=== PATIENT | male | born 1960 | race Caucasian/White ===

== ENCOUNTER 2021-12-26 10:23 | Emergency (ER) | payer OTHER ==
[~2021-12-26] VITALS: Ht 182.9 cm; Wt 81.5 kg
[2021-12-26] MEDS ORDERED: KETOROLAC TROMETH 60MG/2ML VIAL IV ONE (11:15)
[2021-12-26] MEDS ORDERED: diazePAM 5 MG TAB PO ONE (11:15)
[2021-12-26 14:41] LABS: Basophils # (auto) 0 10 ^3/uL (0-0.2); Basophils % (auto) 0.4 % (0.0-2.0); Eosinophils # (auto) 0 10 ^3/uL (0-0.8); Eosinophils % (auto) 0.2 % (0.0-7.0); Hematocrit 47.1 % (41.0-53.0); Hemoglobin 15.8 g/dL (13.5-17.5); Lymphocytes # (auto) 0.9 10 ^3/uL (0.4-5.4); Lymphocytes % (auto) 9.8 % (10.0-50.0); Mean Corpuscular Hgb Conc. 33.4 g/dL (32.0-36.0); Mean Corpuscular Volume 80.8 fL (80.0-100.0); Monocytes # (auto) 0.4 10 ^3/uL (0-1.3); Monocytes % (auto) 4.6 % (0.0-12.0); Neutrophils # (auto) 7.7 10 ^3/uL (1.6-8.6); Nucleated Red Blood Cells % 0.1 %; Red Blood Cells 5.83 10^6/uL (4.5-5.90); Red Cell Distribution Width 14.5 % (11.8-14.3); White Blood Cell 9.1 10^3/uL (4.4-10.8)
[2021-12-26 14:57] LABS: Partial Thromboplastin Time 26.5 sec (24.6-33.4)
[2021-12-26 15:03] LABS: Albumin 3.6 g/dL (3.4-5.0); Calcium 8.3 mg/dL (8.5-10.1); Potassium 4.4 mmol/L (3.5-5.1)
[2021-12-26 15:07] LABS: BUN/Creatinine Ratio 19.7; Bilirubin, Total 0.8 mg/dL (0.2-1.0); Total Protein 6.2 g/dL (6.4-8.2)
[2021-12-26] MEDS ORDERED: MORPHINE SULFATE 4 MG/ML SYR/VIAL IV STA (17:17)
[2021-12-26 20:54] VITALS: BP 184/93
== END 2021-12-26 21:35 | disposition short-term general hospital (02) ==
LOC: EDBD 10:23 → ER 10:23
DX: S22.41XA Multiple fractures of ribs, right side, initial encounter for closed fracture (principal); E11.9 Type 2 diabetes mellitus without complications; Z87.891 Personal history of nicotine dependence; Z20.822 Contact with and (suspected) exposure to COVID-19; W51.XXXA Accidental striking against or bumped into by another person, initial encounter; Y93.89 Activity, other specified; Y92.89 Other specified places as the place of occurrence of the external cause; Y99.8 Other external cause status
CPT/HCPCS: 36415; 71250; 80053; 85025; 85610; 85730; 87426; 96374; 96375; 99285; J1885; J2270

== ENCOUNTER 2022-02-09 02:33 | Inpatient (IN) | payer OTHER ==
[~2022-02-09] VITALS: Ht 180.3 cm; Wt 96.5 kg
[2022-02-09 03:18] LABS: Basophils # (auto) 0.1 10 ^3/uL (0-0.2); Basophils % (auto) 1.2 % (0.0-2.0); Eosinophils # (auto) 0.1 10 ^3/uL (0-0.8); Eosinophils % (auto) 1.6 % (0.0-7.0); Hematocrit 47.7 % (41.0-53.0); Hemoglobin 16.2 g/dL (13.5-17.5); Lymphocytes # (auto) 2.2 10 ^3/uL (0.4-5.4); Lymphocytes % (auto) 35.8 % (10.0-50.0); Mean Corpuscular Hemoglobin 27.7 pg (28.0-32.0); Mean Corpuscular Volume 81.6 fL (80.0-100.0); Monocytes # (auto) 0.4 10 ^3/uL (0-1.3); Monocytes % (auto) 6.7 % (0.0-12.0); Neutrophils # (auto) 3.4 10 ^3/uL (1.6-8.6); Neutrophils % (auto) 54.7 % (37.0-80.0); Nucleated Red Blood Cells % 0.2 %; Red Blood Cells 5.85 10^6/uL (4.5-5.90); Red Cell Distribution Width 14.9 % (11.8-14.3); White Blood Cell 6.2 10^3/uL (4.4-10.8)
[2022-02-09 03:25] LABS: Albumin 3.8 g/dL (3.4-5.0); Calcium 8.9 mg/dL (8.5-10.1); Magnesium 2.2 mg/dL (1.6-2.6); Potassium 3.8 mmol/L (3.5-5.1)
[2022-02-09 03:29] LABS: BUN/Creatinine Ratio 17.8; Bilirubin, Total 0.9 mg/dL (0.2-1.0); Total Protein 6.8 g/dL (6.4-8.2)
[2022-02-09] MEDS ORDERED: ASPirin-EC 325mg tab PO ONE (04:00)
[2022-02-09] MEDS ORDERED: ENOXAPARIN SOD 100 MG/1 ML SYRINGE SC ONE (04:00)
[2022-02-09] MEDS: METOPROLOL TARTRATE 1MG/1ML-5ML VIAL IV SCH ×3 (04:01→07:45)
[2022-02-09] MEDS ORDERED: NITROGLYCERIN 0.4 MG SL TAB SL PRN ×2 (15:00→15:15)
[2022-02-09] MEDS ORDERED: MORPHINE SULFATE INJ 2 MG/ml SYRG IV ONE (15:00)
[2022-02-09] MEDS ORDERED: ONDANSETRON HCL 4 MG/2 ML VIAL IV ONE (15:00)
[2022-02-09] MEDS ORDERED: POTASSIUM CHL 20 Meq TABLET PO ONE (15:00)
[2022-02-09] MEDS ORDERED: MORPHINE SULFATE INJ 2 MG/ml SYRG IV PRN ×3 (15:00→15:15)
[2022-02-09] MEDS ORDERED: NITROGLYCERIN 0.4 MG SL TAB SL ONE (15:00)
[2022-02-09] MEDS ORDERED: METOPROLOL SUCCINATE XL 50 MG TAB PO ONE (15:00)
[2022-02-09] MEDS ORDERED: ACETAMINOPHEN 325 MG TAB PO PRN (15:15)
[2022-02-09] MEDS ORDERED: HYDROcodone-ACET 5/325MG TAB PO PRN (15:15)
[2022-02-09] MEDS ORDERED: hydrALAZINE HCL 20 MG/ML VL IV PRN (15:15)
[2022-02-09] MEDS ORDERED: DEXTROSE (50%) 50ML SYRG IV PRN (15:15)
[2022-02-09] MEDS ORDERED: LISI-275 PO (15:16)
[2022-02-09] MEDS ORDERED: GLIP5TAB12 PO (15:16)
[2022-02-09] MEDS ORDERED: AZITHROMYCIN 500MG/ 250ML 250 ML IV ONE (15:30)
[2022-02-09] MEDS ORDERED: cefTRIAXone 1GM/50ML D5W 50 ML IV ONE (15:30)
[2022-02-09] MEDS: SODIUM CHLORIDE 0.9% 1,000 ML IV SCH (15:31)
[2022-02-09 15:32] LABS: Urine Bacteria NONE SEEN /hpf (None Seen); Urine Blood Negative /uL (Negative); Urine Mucus FEW (None Seen); Urine Specific Gravity 1.022 (1.001-1.035); Urine WBC 5 /hpf (0 - 3)
[2022-02-09 16:34] LABS: INR 1.02 (0.9-1.15); Partial Thromboplastin Time 27.4 sec (24.6-33.4)
[2022-02-09 16:48] LABS: Alcohol, Urine < 3.0 mg/dL (0-10); Amphetamine Screen, Urine NEGATIVE (NEGATIVE); Barbiturate Scree,Urine NEGATIVE (NEGATIVE); Benzodiazephine Screen, Urine NEGATIVE (NEGATIVE); Cannabinoid Screen, Urine NEGATIVE (NEGATIVE); Cocaine Screen, Urine NEGATIVE (NEGATIVE); Opiate Scree,Urine NEGATIVE (NEGATIVE); Phencyclidine Screen, Urine NEGATIVE (NEGATIVE)
[2022-02-09] MEDS: InsuLIN REG 1unit/0.01ml Soln (100units/ml) SC SCH ×2 (17:21→22:00)
[2022-02-09] MEDS: ACCU-CHEK COMFORT CURVE STRIP VI SCH (17:21)
[2022-02-09 17:45] LABS: Cholesterol 191 mg/dL (< 200)
[2022-02-09 17:48] LABS: HDL Cholesterol 36 mg/dL (40-59); LDL Cholesterol 135 mg/dL (< 100); Triglycerides 218 mg/dL (< 150)
[2022-02-09] MEDS: hydrALAZINE HCL 20 MG/ML VL IV PRN (20:31)
[2022-02-09 22:00] VITALS: BP 185/86
[2022-02-09] MEDS ORDERED: ENOXAPARIN SOD 100 MG/1 ML SYRINGE SC SCH (22:00)
[2022-02-10] VITALS (9 sets, daily range): BP systolic 131–173; BP diastolic 72–94
[2022-02-10] MEDS: ATORVASTATIN 20 MG TAB PO SCH ×2 (00:53→21:15)
[2022-02-10] MEDS: ACCU-CHEK COMFORT CURVE STRIP VI SCH ×5 (00:53→21:27)
[2022-02-10] MEDS: AMIODARONE HCL 200 MG TAB PO SCH ×3 (01:01→21:15)
[2022-02-10 04:45] LABS: Basophils # (auto) 0.1 10 ^3/uL (0-0.2); Basophils % (auto) 0.9 % (0.0-2.0); Eosinophils # (auto) 0.1 10 ^3/uL (0-0.8); Hematocrit 45.8 % (41.0-53.0); Hemoglobin 15.8 g/dL (13.5-17.5); Lymphocytes # (auto) 2.2 10 ^3/uL (0.4-5.4); Lymphocytes % (auto) 31.6 % (10.0-50.0); Mean Corpuscular Hemoglobin 27.9 pg (28.0-32.0); Mean Corpuscular Hgb Conc. 34.4 g/dL (32.0-36.0); Mean Corpuscular Volume 81.1 fL (80.0-100.0); Monocytes # (auto) 0.5 10 ^3/uL (0-1.3); Monocytes % (auto) 7.9 % (0.0-12.0); Neutrophils % (auto) 58.6 % (37.0-80.0); Nucleated Red Blood Cells % 0.1 %; Red Blood Cells 5.65 10^6/uL (4.5-5.90); Red Cell Distribution Width 14.8 % (11.8-14.3); White Blood Cell 6.9 10^3/uL (4.4-10.8)
[2022-02-10 05:02] LABS: Potassium 4.1 mmol/L (3.5-5.1)
[2022-02-10 05:08] LABS: Albumin 3.4 g/dL (3.4-5.0); BUN/Creatinine Ratio 18.5; Bilirubin, Total 0.8 mg/dL (0.2-1.0); Calcium 8.8 mg/dL (8.5-10.1); Total Protein 6.1 g/dL (6.4-8.2)
[2022-02-10] MEDS: hydrALAZINE HCL 20 MG/ML VL IV PRN (05:10)
[2022-02-10] MEDS: SODIUM CHLORIDE 0.9% 1,000 ML IV SCH ×4 (05:10→23:00)
[2022-02-10] MEDS: InsuLIN REG 1unit/0.01ml Soln (100units/ml) SC SCH ×4 (05:39→21:49)
[2022-02-10] MEDS: cefTRIAXone 1GM/50ML D5W 50 ML IV SCH (08:45)
[2022-02-10] MEDS: ASPirin 81 mg TAB PO SCH (09:19)
[2022-02-10] MEDS: METOPROLOL SUCCINATE XL 50 MG TAB PO SCH (09:20)
[2022-02-10] MEDS ORDERED: ANGIOMAX 250 MG VIAL IV ONE (12:21)
[2022-02-10] MEDS ORDERED: VERAPAMIL 2.5MG/ML INJ 2ML VIAL IV ONE (12:21)
[2022-02-10] MEDS ORDERED: fentaNYL CITRATE 100 MCG/2 ML VL ONE (12:21)
[2022-02-10] MEDS ORDERED: MIDAZOLAM HCL 2MG/2ML 2ml VIAL (1mg/ml) ONE (12:21)
[2022-02-10] MEDS ORDERED: HEPARIN SODIUM (PORCINE) 5000 UNITS/ML 1ML VIAL ONE (12:21)
[2022-02-10] MEDS ORDERED: hydrALAZINE HCL 20 MG/ML VL ONE (12:33)
[2022-02-10] MEDS ORDERED: METOPROLOL TARTRATE 1MG/1ML-5ML VIAL IV ONE (12:49)
[2022-02-10] MEDS ORDERED: ASPirin 325 MG TAB ONE (13:22)
[2022-02-10] MEDS ORDERED: TICAGRELOR 90 MG TAB ONE (13:22)
[2022-02-10] MEDS: AZITHROMYCIN 500MG/ 250ML 250 ML IV SCH (16:01)
[2022-02-10] MEDS: TICAGRELOR 90 MG TAB PO SCH (21:15)
[2022-02-11] VITALS (7 sets, daily range): BP systolic 132–159; BP diastolic 73–89
[2022-02-11] MEDS: InsuLIN REG 1unit/0.01ml Soln (100units/ml) SC SCH ×4 (05:56→21:22)
[2022-02-11] MEDS: ACCU-CHEK COMFORT CURVE STRIP VI SCH ×4 (05:56→21:09)
[2022-02-11] MEDS: hydrALAZINE HCL 20 MG/ML VL IV PRN (06:32)
[2022-02-11 06:34] LABS: Basophils # (auto) 0 10 ^3/uL (0-0.2); Basophils % (auto) 0.4 % (0.0-2.0); Eosinophils # (auto) 0.1 10 ^3/uL (0-0.8); Eosinophils % (auto) 0.6 % (0.0-7.0); Hematocrit 44.1 % (41.0-53.0); Hemoglobin 15.4 g/dL (13.5-17.5); Lymphocytes # (auto) 1.7 10 ^3/uL (0.4-5.4); Lymphocytes % (auto) 20.1 % (10.0-50.0); Mean Corpuscular Hemoglobin 28.2 pg (28.0-32.0); Mean Corpuscular Hgb Conc. 34.9 g/dL (32.0-36.0); Mean Corpuscular Volume 80.8 fL (80.0-100.0); Monocytes # (auto) 0.6 10 ^3/uL (0-1.3); Monocytes % (auto) 7.6 % (0.0-12.0); Neutrophils % (auto) 71.3 % (37.0-80.0); Nucleated Red Blood Cells % 0.1 %; Red Blood Cells 5.46 10^6/uL (4.5-5.90); Red Cell Distribution Width 14.8 % (11.8-14.3); White Blood Cell 8.4 10^3/uL (4.4-10.8)
[2022-02-11 06:48] LABS: Potassium 3.7 mmol/L (3.5-5.1)
[2022-02-11 06:50] LABS: BUN/Creatinine Ratio 13.7
[2022-02-11] MEDS: cefTRIAXone 1GM/50ML D5W 50 ML IV SCH (08:49)
[2022-02-11] MEDS: ASPirin 81 mg TAB PO SCH (10:05)
[2022-02-11] MEDS: TICAGRELOR 90 MG TAB PO SCH ×2 (10:06→21:04)
[2022-02-11] MEDS: AMIODARONE HCL 200 MG TAB PO SCH ×2 (10:06→21:05)
[2022-02-11] MEDS: METOPROLOL SUCCINATE XL 50 MG TAB PO SCH (10:07)
[2022-02-11] MEDS: AZITHROMYCIN 500MG/ 250ML 250 ML IV SCH (10:10)
[2022-02-11] MEDS: APIXABAN 5 MG TAB PO SCH ×2 (11:27→21:04)
[2022-02-11] MEDS ORDERED: POTASSIUM CHL 20 Meq TABLET PO ONE (12:00)
[2022-02-11] MEDS ORDERED: FUROSEMIDE 20 MG/2 ML VIAL IV ONE (12:00)
[2022-02-11] MEDS: ATORVASTATIN 20 MG TAB PO SCH (21:04)
[2022-02-12] MEDS: hydrALAZINE HCL 20 MG/ML VL IV PRN (03:57)
[2022-02-12 05:00] VITALS: BP 164/86
[2022-02-12] MEDS: ACCU-CHEK COMFORT CURVE STRIP VI SCH ×3 (06:33→19:02)
[2022-02-12] MEDS: InsuLIN REG 1unit/0.01ml Soln (100units/ml) SC SCH ×3 (06:34→17:00)
[2022-02-12 06:51] LABS: Potassium 3.8 mmol/L (3.5-5.1)
[2022-02-12 06:58] LABS: BUN/Creatinine Ratio 17.6; Calcium 9.3 mg/dL (8.5-10.1)
[2022-02-12 08:00] VITALS: BP 152/74
[2022-02-12 09:21] VITALS: BP 150/74
[2022-02-12] MEDS: cefTRIAXone 1GM/50ML D5W 50 ML IV SCH (09:27)
[2022-02-12] MEDS: METOPROLOL SUCCINATE XL 50 MG TAB PO SCH (09:28)
[2022-02-12] MEDS: TICAGRELOR 90 MG TAB PO SCH (09:29)
[2022-02-12] MEDS: APIXABAN 5 MG TAB PO SCH (09:29)
[2022-02-12] MEDS: AMIODARONE HCL 200 MG TAB PO SCH (09:29)
[2022-02-12] MEDS: ASPirin 81 mg TAB PO SCH (09:29)
[2022-02-12] MEDS ORDERED: AZITHROMYCIN 250 MG TAB PO SCH (10:00)
[2022-02-12] MEDS ORDERED: TICA90TA PO (11:57)
[2022-02-12] MEDS ORDERED: ATOR20TA50 PO (11:57)
[2022-02-12] MEDS ORDERED: APIX5TAB PO (11:57)
[2022-02-12] MEDS ORDERED: ASPI-325 PO (11:57)
[2022-02-12] MEDS ORDERED: METO-6 PO (11:57)
[2022-02-12] MEDS ORDERED: AMIO200T33 PO (11:57)
[2022-02-12] MEDS ORDERED: LISINOPRIL 5 MG TAB PO ONE (12:00)
[2022-02-12 13:00] VITALS: BP 128/77
[2022-02-12 14:38] VITALS: BP 128/77
[2022-02-12 16:45] VITALS: BP 153/74
== END 2022-02-12 17:25 | DRG 246 ==
LOC: ER 02:33 → TELE 15:11 → TELE-WESTW 22:00
PROVIDERS: ADMIT Registered Nurse; ATTEND Internal Medicine
PROC: B2111ZZ Fluoroscopy of Multiple Coronary Arteries using Low Osmolar Contrast (ICD-10-PCS; principal; 2022-02-10)
PROC: 027036Z Dilation of Coronary Artery, One Artery with Three Drug-eluting Intraluminal Devices, Percutaneous Approach (ICD-10-PCS; 2022-02-10)
PROC: B2151ZZ Fluoroscopy of Left Heart using Low Osmolar Contrast (ICD-10-PCS; 2022-02-10)
PROC: 4A023N7 Measurement of Cardiac Sampling and Pressure, Left Heart, Percutaneous Approach (ICD-10-PCS; 2022-02-10)
PROC: B240ZZ3 Ultrasonography of Single Coronary Artery, Intravascular (ICD-10-PCS; 2022-02-10)
DX: I21.9 Acute myocardial infarction, unspecified (principal); I50.41 Acute combined systolic (congestive) and diastolic (congestive) heart failure; J18.9 Pneumonia, unspecified organism; D68.69 Other thrombophilia; I16.1 Hypertensive emergency; I48.91 Unspecified atrial fibrillation; E78.5 Hyperlipidemia, unspecified; E03.9 Hypothyroidism, unspecified; I11.0 Hypertensive heart disease with heart failure; I35.0 Nonrheumatic aortic (valve) stenosis; E66.9 Obesity, unspecified; Z20.822 Contact with and (suspected) exposure to COVID-19; E11.65 Type 2 diabetes mellitus with hyperglycemia; Z79.01 Long term (current) use of anticoagulants; Z79.02 Long term (current) use of antithrombotics/antiplatelets; Z79.82 Long term (current) use of aspirin; Z79.84 Long term (current) use of oral hypoglycemic drugs; Z79.899 Other long term (current) drug therapy; Z83.3 Family history of diabetes mellitus; Z87.891 Personal history of nicotine dependence; Z68.29 Body mass index [BMI] 29.0-29.9, adult
CPT/HCPCS: 36415; 71045; 71046; 80048; 80053; 80061; 80307; 81001; 82962; 83036; 83735; 83880; 84443; 84484; 85025; 85610; 85730; 86850; 86900; 86901; 87040; 87086; 87426; 92928; 93005; 93306; 93458; 96365; 96366; 96368; 96372; 99152; 99153; 99291; C1874; C1887; G0378; J0696; J1815; J2250

== ENCOUNTER 2022-02-15 10:06 | Inpatient (IN) | payer OTHER ==
[~2022-02-15] VITALS: Ht 180.3 cm; Wt 90.2 kg
[~2022-02-15 10:06] MED LIST: AMIO200T33 PO; APIX5TAB PO; ASPI-325 PO; ATOR20TA50 PO; GLIP5TAB12 PO; LISI-275 PO; METO-6 PO; TICA90TA PO
[2022-02-15 13:09] LABS: Basophils # (auto) 0 10 ^3/uL (0-0.2); Basophils % (auto) 0.3 % (0.0-2.0); Eosinophils # (auto) 0.1 10 ^3/uL (0-0.8); Eosinophils % (auto) 1.2 % (0.0-7.0); Hematocrit 48.6 % (41.0-53.0); Hemoglobin 16.2 g/dL (13.5-17.5); Lymphocytes # (auto) 1.5 10 ^3/uL (0.4-5.4); Lymphocytes % (auto) 24.6 % (10.0-50.0); Mean Corpuscular Hemoglobin 27.7 pg (28.0-32.0); Mean Corpuscular Hgb Conc. 33.4 g/dL (32.0-36.0); Mean Corpuscular Volume 82.9 fL (80.0-100.0); Monocytes # (auto) 0.6 10 ^3/uL (0-1.3); Monocytes % (auto) 9.2 % (0.0-12.0); Neutrophils # (auto) 4.1 10 ^3/uL (1.6-8.6); Neutrophils % (auto) 64.7 % (37.0-80.0); Nucleated Red Blood Cells % 0.2 %; Red Blood Cells 5.86 10^6/uL (4.5-5.90); Red Cell Distribution Width 14.6 % (11.8-14.3); White Blood Cell 6.3 10^3/uL (4.4-10.8)
[2022-02-15 13:26] LABS: INR 1.03 (0.9-1.15); Partial Thromboplastin Time 28.1 sec (24.6-33.4)
[2022-02-15 14:00] LABS: Albumin 4.1 g/dL (3.4-5.0); Bilirubin, Total 1.3 mg/dL (0.2-1.0); Calcium 9.4 mg/dL (8.5-10.1); Potassium 4.8 mmol/L (3.5-5.1); Total Protein 7.2 g/dL (6.4-8.2)
[2022-02-15] MEDS ORDERED: ENOXAPARIN SOD 100 MG/1 ML SYRINGE SC ONE (17:30)
[2022-02-15] MEDS ORDERED: NITROGLYCERIN 0.4 MG SL TAB SL PRN (19:15)
[2022-02-15] MEDS ORDERED: MORPHINE SULFATE INJ 2 MG/ml SYRG IV PRN (19:15)
[2022-02-15] MEDS ORDERED: LISINOPRIL 10 MG TAB PO ONE (19:15)
[2022-02-15] MEDS ORDERED: hydrALAZINE HCL 20 MG/ML VL IV PRN (19:15)
[2022-02-15] MEDS ORDERED: DEXTROSE (50%) 50ML SYRG IV PRN (20:00)
[2022-02-15] MEDS: InsuLIN REG 1unit/0.01ml Soln (100units/ml) SC SCH (22:00)
[2022-02-15] MEDS: ACCU-CHEK COMFORT CURVE STRIP VI SCH (22:15)
[2022-02-15] MEDS: AMIODARONE HCL 200 MG TAB PO SCH (22:22)
[2022-02-15] MEDS: ATORVASTATIN 20 MG TAB PO SCH (22:22)
[2022-02-16] MEDS: InsuLIN REG 1unit/0.01ml Soln (100units/ml) SC SCH ×4 (06:25→22:42)
[2022-02-16] MEDS: ACCU-CHEK COMFORT CURVE STRIP VI SCH ×4 (06:25→22:00)
[2022-02-16 07:04] LABS: Basophils # (auto) 0 10 ^3/uL (0-0.2); Basophils % (auto) 0.6 % (0.0-2.0); Eosinophils # (auto) 0.1 10 ^3/uL (0-0.8); Eosinophils % (auto) 1.2 % (0.0-7.0); Hemoglobin 15.2 g/dL (13.5-17.5); Lymphocytes # (auto) 1.9 10 ^3/uL (0.4-5.4); Mean Corpuscular Hemoglobin 27.9 pg (28.0-32.0); Mean Corpuscular Hgb Conc. 34.5 g/dL (32.0-36.0); Mean Corpuscular Volume 81.1 fL (80.0-100.0); Monocytes # (auto) 0.6 10 ^3/uL (0-1.3); Monocytes % (auto) 9.9 % (0.0-12.0); Neutrophils # (auto) 3.4 10 ^3/uL (1.6-8.6); Neutrophils % (auto) 57.3 % (37.0-80.0); Nucleated Red Blood Cells % 0.1 %; Red Blood Cells 5.42 10^6/uL (4.5-5.90); Red Cell Distribution Width 14.4 % (11.8-14.3)
[2022-02-16 07:15] LABS: Albumin 3.6 g/dL (3.4-5.0); Calcium 9.1 mg/dL (8.5-10.1); Potassium 4.4 mmol/L (3.5-5.1)
[2022-02-16 07:17] LABS: BUN/Creatinine Ratio 14.6
[2022-02-16 07:19] LABS: Total Protein 6.2 g/dL (6.4-8.2)
[2022-02-16] MEDS: ASPirin-EC 81 mg tab PO SCH (08:22)
[2022-02-16] MEDS: glipiZIDE 5 MG TAB PO SCH (08:24)
[2022-02-16] MEDS: AMIODARONE HCL 200 MG TAB PO SCH ×2 (08:25→22:40)
[2022-02-16] MEDS: METOPROLOL SUCCINATE XL 50 MG TAB PO SCH (08:25)
[2022-02-16] MEDS ORDERED: LISINOPRIL 10 MG TAB PO SCH (10:00)
[2022-02-16] MEDS ORDERED: ENOXAPARIN SOD 40 MG/0.4 ML SYRINGE SC SCH (10:00)
[2022-02-16] MEDS ORDERED: LISINOPRIL 5 MG TAB PO SCH (10:00)
[2022-02-16] MEDS ORDERED: LISINOPRIL 10 MG TAB PO ONE (11:00)
[2022-02-16] MEDS ORDERED: TRIAMTERENE/HCTZ 37.5/25 MG CAP/TAB PO ONE (13:45)
[2022-02-16] MEDS ORDERED: TICAGRELOR 90 MG TAB PO ONE (13:45)
[2022-02-16] MEDS ORDERED: SODIUM CHLORIDE 0.9% 500 ML IV ONE (19:45)
[2022-02-16] MEDS ORDERED: diphenhdrAMINE HCL 50 MG/1 ML VL IV ONE (19:45)
[2022-02-16] MEDS ORDERED: METOCLOPRAMIDE HCL 10 MG TAB PO ONE (19:45)
[2022-02-16] MEDS ORDERED: predniSONE 20 MG TAB PO ONE (19:45)
[2022-02-16 22:00] VITALS: BP 130/65
[2022-02-16] MEDS: ATORVASTATIN 20 MG TAB PO SCH (22:39)
[2022-02-16] MEDS: APIXABAN 5 MG TAB PO SCH (22:40)
[2022-02-16] MEDS: LISINOPRIL 20 MG TAB PO SCH (22:40)
[2022-02-16] MEDS: TICAGRELOR 90 MG TAB PO SCH (22:41)
[2022-02-16 22:57] VITALS: BP 130/65
[2022-02-17 05:00] VITALS: BP 144/77
[2022-02-17] MEDS: InsuLIN REG 1unit/0.01ml Soln (100units/ml) SC SCH ×4 (06:08→22:40)
[2022-02-17] MEDS: ACCU-CHEK COMFORT CURVE STRIP VI SCH ×4 (06:10→22:37)
[2022-02-17 06:15] LABS: Urine Bacteria NONE SEEN /hpf (None Seen); Urine Blood Negative /uL (Negative); Urine Mucus FEW (None Seen); Urine Specific Gravity 1.008 (1.001-1.035); Urine WBC <1 /hpf (0 - 3)
[2022-02-17 06:18] LABS: BUN/Creatinine Ratio 16.5; Calcium 9.3 mg/dL (8.5-10.1); Potassium 4.5 mmol/L (3.5-5.1)
[2022-02-17 09:00] VITALS: BP 149/78
[2022-02-17] MEDS: METOPROLOL SUCCINATE XL 50 MG TAB PO SCH (10:00)
[2022-02-17] MEDS ORDERED: LISINOPRIL 20 MG TAB PO SCH (10:00)
[2022-02-17] MEDS ORDERED: TRIAMTERENE/HCTZ 37.5/25 MG CAP/TAB PO SCH (10:00)
[2022-02-17] MEDS: LISINOPRIL 20 MG TAB PO SCH ×2 (10:30→22:50)
[2022-02-17] MEDS: TICAGRELOR 90 MG TAB PO SCH ×2 (10:30→22:50)
[2022-02-17] MEDS: glipiZIDE 5 MG TAB PO SCH (10:30)
[2022-02-17] MEDS: APIXABAN 5 MG TAB PO SCH ×2 (10:30→22:50)
[2022-02-17] MEDS: AMIODARONE HCL 200 MG TAB PO SCH ×2 (10:30→22:50)
[2022-02-17] MEDS: ASPirin-EC 81 mg tab PO SCH (10:45)
[2022-02-17] MEDS ORDERED: amLODIPine BESYLATE 5 MG TAB PO ONE (11:30)
[2022-02-17] MEDS ORDERED: diphenhdrAMINE HCL 25 MG CAP PO PRN (11:30)
[2022-02-17 13:00] VITALS: BP 146/84
[2022-02-17 17:00] VITALS: BP 152/78
[2022-02-17 22:00] VITALS: BP 146/73
[2022-02-17] MEDS: ATORVASTATIN 20 MG TAB PO SCH (22:51)
[2022-02-18 05:00] VITALS: BP 108/63
[2022-02-18] MEDS: ACCU-CHEK COMFORT CURVE STRIP VI SCH ×2 (06:03→11:08)
[2022-02-18] MEDS: InsuLIN REG 1unit/0.01ml Soln (100units/ml) SC SCH ×2 (06:03→11:44)
[2022-02-18 08:30] VITALS: BP 144/74
[2022-02-18] MEDS: ASPirin-EC 81 mg tab PO SCH (09:09)
[2022-02-18] MEDS: TICAGRELOR 90 MG TAB PO SCH (09:10)
[2022-02-18] MEDS: LISINOPRIL 20 MG TAB PO SCH (09:10)
[2022-02-18] MEDS: APIXABAN 5 MG TAB PO SCH (09:10)
[2022-02-18] MEDS: AMIODARONE HCL 200 MG TAB PO SCH (09:11)
[2022-02-18] MEDS: METOPROLOL SUCCINATE XL 50 MG TAB PO SCH (10:00)
[2022-02-18] MEDS ORDERED: amLODIPine BESYLATE 5 MG TAB PO SCH (10:00)
[2022-02-18] MEDS: glipiZIDE 5 MG TAB PO SCH (11:00)
[2022-02-18] MEDS ORDERED: amLODIPine BESYLATE 5 MG TAB PO ONE (11:30)
[2022-02-18] MEDS ORDERED: AMLO-496 PO (11:35)
[2022-02-18] MEDS ORDERED: LISI20TA28 PO (11:35)
[2022-02-18 12:30] VITALS: BP 146/79
[2022-02-18 14:18] VITALS: BP 116/58
[2022-02-19] MEDS ORDERED: amLODIPine BESYLATE 5 MG TAB PO SCH (10:00)
== END 2022-02-18 14:40 | disposition home or self-care (01) | DRG 281 ==
LOC: ER 10:06 → TELE 19:23 → TELE-WESTW 02-16 21:57
PROVIDERS: ADMIT Registered Nurse; ATTEND Internal Medicine
DX: I21.4 Non-ST elevation (NSTEMI) myocardial infarction (principal); D68.69 Other thrombophilia; I16.0 Hypertensive urgency; I25.10 Atherosclerotic heart disease of native coronary artery without angina pectoris; I48.0 Paroxysmal atrial fibrillation; I35.0 Nonrheumatic aortic (valve) stenosis; L27.0 Generalized skin eruption due to drugs and medicaments taken internally; Z20.822 Contact with and (suspected) exposure to COVID-19; E11.9 Type 2 diabetes mellitus without complications; E66.9 Obesity, unspecified; I10 Essential (primary) hypertension; E78.5 Hyperlipidemia, unspecified; Z83.3 Family history of diabetes mellitus; Z68.27 Body mass index [BMI] 27.0-27.9, adult; Z87.891 Personal history of nicotine dependence; Z95.5 Presence of coronary angioplasty implant and graft
CPT/HCPCS: 36415; 71045; 80048; 80053; 81001; 82962; 83880; 84484; 85025; 85379; 85610; 85730; 87081; 87426; 93005; 96372; G0378; J1815